=== PATIENT | male | born 1960 | race Hispanic/Latino ===

== ENCOUNTER 2018-07-31 18:48 | Emergency (ER) | payer BC ==
[2018-07-31 19:07] VITALS: BMI 28.8
[2018-07-31 19:16] VITALS: TEMP 98
[2018-07-31] MEDS ORDERED: TDAP Vaccine 0.5 mL Syr IM ONE (19:30)
--- NOTE | 2018-07-31 19:43 | ED PDOC ---
Arrival/HPI - General Chief Complaint: Trauma Time Seen by Provider: 07/31/18 18:52 Historian: Patient - History of Present Illness Narrative History of Present Illness (Text): 07/31/18 19:40 58 yo M w/ PMH of UC, RA and opiate addiction on suboxone therapy, presents c/o L elbow, L wrist/hand pain after he fell down 5 steps at work. 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 Reports no LOC, head injury, neck pain, back pain, numbness, decrease in ROM, chest pain, other joint pain. Has no other complaints. PMD Rachel Past Medical History - Provider Review Primary Care Provider: Daljit Ramos - Infectious Disease Hx of Infectious Diseases: None - Cardiac Hx Cardiac Disorders: Yes Hx Hypertension: Yes Hx Pacemaker: No - Pulmonary Hx Respiratory Disorders: (1 to 2 pack a day smoker) - Neurological Hx Paralysis: No - HEENT Hx HEENT Disorder: Yes (eyeglasses) - Hematological/Oncological Hx Blood Transfusions: No - Musculoskeletal/Rheumatological Hx Musculoskeletal Disorders: Yes (chronic joint pain rheumatoid arthritis) - Gastrointestinal Hx Gastrointestinal Disorders: Yes (diarrhea 1 1/2 mo) Hx Gastroesophageal Reflux: Yes Other/Comment: umbilical hernia x 7 yrs no sx, colonoscopy 1 mo ago hemorrhoid found - Psychiatric Hx Emotional Abuse: No Hx Physical Abuse: No Hx Substance Use: No - Anesthesia Hx Anesthesia Reactions: No Hx Malignant Hyperthermia: No - Suicidal Assessment Feels Threatened In Home Enviroment: No Family/Social History Family/Social History: No Known Family HX Smoking Status: Heavy Smoker > 10 Cigarettes Daily Hx Alcohol Use: Yes (BEER-6PACK [id number] SINCE HOSPITALIZATION) Frequency of alcohol use: Daily Hx Substance Use: No Allergies/Home Meds Allergies/Adverse Reactions: Allergies No Known Allergies Allergy (Verified 07/31/18 19:11) Home Medications: Home Meds Medication Instructions Recorded Confirmed Buprenorphine HCl/Naloxone HCl 1 each SL DAILY 07/31/18 07/31/18 [Suboxone 8 mg-2 mg Sl Film] Folic Acid 1 mg PO DAILY 07/31/18 07/31/18 Lisinopril [Zestril] 40 mg PO DAILY 07/31/18 07/31/18 Methotrexate 2.5 mg PO DAILY 07/31/18 07/31/18 Tamsulosin [Flomax] 0.4 mg PO DAILY 07/31/18 07/31/18 amLODIPine [Norvasc] 10 mg PO DAILY 07/31/18 07/31/18 Review of Systems - Review of Systems Constitutional: absent: Fatigue, Fevers Respiratory: absent: SOB, Cough Cardiovascular: absent: Chest Pain, Palpitations Gastrointestinal: absent: Abdominal Pain, Diarrhea, Vomiting Musculoskeletal: Arthralgias, Joint Swelling. absent: Back Pain, Neck Pain Skin: absent: Rash, Pruritis, Skin Lesions Neurological: absent: Headache, Dizziness Physical Exam Vital Signs Temp Pulse Resp BP Pulse Ox 07/31/18 19:06 98 F 72 18 138/70 95 Temperature: Afebrile Blood Pressure: Normal Pulse: Regular Respiratory Rate: Normal Appearance: Positive for: Well-Appearing, Non-Toxic, Comfortable Pain Distress: Mild Mental Status: Positive for: Alert and Oriented X 3 - Systems Exam Head: Present: Atraumatic, Normocephalic Neck: Present: Normal Range of Motion. No: Meningeal Signs, MIDLINE TENDERNESS, Lymphadenopathy Back: Present: Normal Inspection. No: Midline Tenderness Upper Extremity: Present: Normal ROM, NORMAL PULSES, Neurovascularly Intact, Capillary Refill < 2s, Deformity (+deformity with tenderness, edema to the L wrist), Norm 2-Pt Discrimination. No: Temperature Abnormalties Lower Extremity: Present: Normal Inspection Neurological: Present: GCS=15, CN II-XII Intact, Speech Normal, Motor Func Grossly Intact, Normal Sensory Function Skin: Present: Warm, Dry, Normal Color. No: Rashes Psychiatric: Present: Oriented x 3, Normal Insight, Normal Concentration. No: Alert Medical Decision Making ED Course and Treatment: 07/31/18 19:52 Plan : - XR L elbow - XR L forearm - XR L hand - Tylenol PO 07/31/18 20:45 XR L forearm : +fracture to the distal radius. XR L elbow : no fracture, no dislocation. XR L hand : no fracture, no dislocation. XRs and patient seen by Dr. Collier in the ER, he recommends splint application and outpatient follow up. Orthoglass sugar tong splint applied by him. Neurovascular intact post splint application. Advised to follow up with referral physician in 1-2 days without fail. Advised to take otc pain medications prn for pain. Return to the emergency room at any time for any new or worsening symptoms. Patient states he fully agrees with and understands discharge instructions. States that he agrees with the plan and disposition. Verbalized and repeated discharge instructions and plan. I have given the patient opportunity to ask any additional questions. - RAD Interpretation Radiology Orders: 07/31/18 19:29 ELBOW LEFT 3 VIEWS ROUTINE [RAD] Stat 07/31/18 19:30 FOREARM LEFT [RAD] Stat HAND LEFT 3 VIEWS ROUTINE [RAD] Stat - Medication Orders Current Medication Orders: Discontinued Medications Acetaminophen (Tylenol 325mg Tab) 975 mg PO STAT STA Stop: 07/31/18 19:31 Tetanus/Reduced Diphtheria/Acell Pertussis (Boostrix Vaccine Inj) 0.5 ml IM .ONCE ONE Stop: 07/31/18 19:31 - PA / DRAG [employer] RACER / Resident Statement / has reviewed & agrees with the documentation as recorded. Disposition/Present on Arrival - Present on Arrival Any Indicators Present on Arrival: No History of DVT/PE: No History of Uncontrolled Diabetes: No Urinary Catheter: No History of Decub. Ulcer: No History Surgical Site Infection Following: None - Disposition Have Diagnosis and Disposition been Completed?: Yes Diagnosis: Distal radius fracture, left Disposition: HOME/ ROUTINE Disposition Time: 20:45 Patient Plan: Discharge Condition: FAIR Discharge Instructions (ExitCare): Radius Fracture Additional Instructions: Thank you for letting us take care of you today. You were treated for left distal radius fracture. The emergency medical care you received today was directed at your acute symptoms. Take over the counter pain medication as needed for pain. Return to the Emergency Department if your symptoms worsen, do not improve, or if you have any other problems. Please follow up with referral physician in 2 days for re-evaluation and follow up. Bring any paperwork you were given at discharge with you along with any medications you are taking to your follow up visit. Our treatment cannot replace ongoing medical care by a primary care provider (PCP) outside of the emergency department. Referrals: Justine Ramos MD [Primary Care Provider] - Follow up with primary Ann Collier MD [Staff Provider] - Follow up with primary Rico Gresham MD [Staff Provider] - Follow up with primary Forms: [employer] ([place]), WORK NOTE
[2018-07-31 20:49] VITALS: BP 140/78; PULSE 65; RESP 16; O2SAT 96
--- NOTE | 2018-08-01 18:08 | RAD ---
PROCEDURE: Left Hand Radiographs. HISTORY: pain COMPARISON: None. TECHNIQUE: 3 views obtained. FINDINGS: BONES: No acute fracture. JOINTS: There is osteoarthritis at the radiocarpal articulation. Intercarpal articulations appear intact. CMC and MCP joints appear unremarkable. No articular erosions. SOFT TISSUES: Normal. OTHER FINDINGS: None. IMPRESSION: Radiocarpal osteoarthritis.
--- NOTE | 2018-08-01 18:09 | RAD ---
Date of service: 07/31/2018 PROCEDURE: Radiographs of the left elbow. HISTORY: pain COMPARISON: No prior. TECHNIQUE: 3 views obtained. FINDINGS: BONES: Normal. No fracture. JOINTS: Normal. No osteoarthritis. SOFT TISSUES: Normal. JOINT EFFUSION: None. OTHER FINDINGS: None IMPRESSION: Unremarkable radiographs of the left elbow.
--- NOTE | 2018-08-01 18:09 | RAD ---
Date of service: 07/31/2018 PROCEDURE: Radiographs of the Left Forearm HISTORY: pain COMPARISON: None available. TECHNIQUE: Frontal and lateral views obtained. 2 views obtained. FINDINGS: BONES: No fracture or destructive lesion. JOINT SPACES: Unremarkable. OTHER FINDINGS: None. IMPRESSION: Unremarkable radiographs of the left forearm.
== END 2018-07-31 20:55 | disposition home or self-care (01) ==
LOC: ED 18:48
DX: S52.502A Unspecified fracture of the lower end of left radius, initial encounter for closed fracture (principal); W10.9XXA Fall (on) (from) unspecified stairs and steps, initial encounter; F17.210 Nicotine dependence, cigarettes, uncomplicated; I10 Essential (primary) hypertension; Z23 Encounter for immunization